=== PATIENT | male | born 1990 | race Caucasian/White ===

== ENCOUNTER 2016-06-30 08:27 | Emergency (ER) | payer OTHER, BC ==
[2016-06-30] MEDS ORDERED: Ondansetron 4 MG/2 ML SDV IVPUSH ONE (08:46)
[2016-06-30] MEDS ORDERED: Sodium Chloride 0.9% 1,000 ML IV ONE (08:46)
--- NOTE | 2016-06-30 08:52 | EDM.PDOC ---
ED HPI GENERAL MEDICAL PROBLEM - General Chief Complaint: Gastrointestinal Problem Stated Complaint: VOMITING Time Seen by Provider: 06/30/16 08:52 Source of Information: Reports: Patient - History of Present Illness INITIAL COMMENTS - FREE TEXT/NARRATIVE: HISTORY AND PHYSICAL: History of present illness: [] Patient presents with several episodes of vomiting since yesterday, he presents with vomiting as a complaint he attributes this to eating a gas station food/3 burrito yeaterday. However on physical exam he does have a quite tender abdomen with focus over the right lower quadrant guarding no fever or chills sweats no chest pain shortness breath headache dizziness or palpitation no bowel or urine symptoms Review of systems: As per history of present illness and below otherwise all systems reviewed and negative. Past medical history: As per history of present illness and as reviewed below otherwise noncontributory. Surgical history: As per history of present illness and as reviewed below otherwise noncontributory. Social history: No reported history of drug or alcohol abuse. Family history: As per history of present illness and as reviewed below otherwise noncontributory. Physical exam: HEENT: Atraumatic, normocephalic, pupils reactive, negative for conjunctival pallor or scleral icterus, mucous membranes moist, throat clear, neck supple, nontender, trachea midline. Lungs: Clear to auscultation, breath sounds equal bilaterally, chest nontender. Heart: S1S2, regular, negative for clicks, rubs, or JVD. Abdomen: Soft, nondistended, diffuse tenderness with focus over the right lower quadrant with guarding noted. Negative for masses or hepatosplenomegaly. Negative for costovertebral tenderness. Pelvis: Stable nontender. Genitourinary: Deferred. Rectal: Deferred. Extremities: Atraumatic, negative for cords or calf pain. Neurovascular unremarkable. Neuro: Awake, alert, oriented. Cranial nerves II through XII unremarkable. Cerebellum unremarkable. Motor and sensory unremarkable throughout. Exam nonfocal. Diagnostics: [] Lab as below Therapeutics: [] Normal saline fluid 1 L bolus Zofran 8 mg IV Patient declines pain medication at this time Impression: Mesenteric adenitis Nausea vomiting improved/resolved Definitive disposition and diagnosis as appropriate pending reevaluation and review of above. - Related Data Allergies Allergy/AdvReac Type Severity Reaction Status Date / Time No Known Allergies Allergy Verified 06/30/16 08:37 Home Meds: Home Meds Antidepressant 06/30/16 [History] Stimulant For Adhd 06/30/16 [History] Past Medical History Psychiatric History: Reports: ADHD, Depression Social & Family History - Family History Family Medical History: Noncontributory - Tobacco Use Smoking Status *Q: Never Smoker - Recreational Drug Use Recreational Drug Use: No ED ROS GENERAL - Review of Systems Review Of Systems: ROS reveals no pertinent complaints other than HPI. ED EXAM, GENERAL - Physical Exam Exam: See Below Course - Vital Signs Last Recorded V/S: Last Vital Signs Temp 36.5 C 06/30/16 08:38 Pulse 65 06/30/16 08:38 Resp 18 06/30/16 08:38 BP 130/73 06/30/16 08:38 Pulse Ox 98 06/30/16 08:38 - Orders/Labs/Meds Orders: Active Orders 24 hr Category Date Time Status Abdomen Pelvis w Cont [CT] Stat Exams 06/30/16 09:01 Taken Labs: Laboratory Tests 06/30/16 06/30/16 06/30/16 Range/Units 08:50 08:55 08:55 WBC 5.39 (4.0-11.0) K/uL RBC 5.06 (4.50-5.90) M/uL Hgb 15.3 (13.0-17.0) g/dL Hct 44.5 (38.0-50.0) % MCV 87.9 (80.0-98.0) fL MCH 30.2 (27.0-32.0) pg MCHC 34.4 (31.0-37.0) g/dL RDW Std Deviation 40.1 (28.0-62.0) fl RDW Coeff of Denia 13 (11.0-15.0) % Plt Count 242 (150-400) K/uL MPV 9.50 (7.40-12.00) fL Neut % (Auto) 46.3 L (48.0-80.0) % Lymph % (Auto) 41.4 H (16.0-40.0) % [place] % (Auto) 10.2 (0.0-15.0) % Eos % (Auto) 1.5 (0.0-7.0) % Baso % (Auto) 0.6 (0.0-1.5) % Neut # (Auto) 2.5 (1.4-5.7) K/uL Lymph # (Auto) 2.2 (0.6-2.4) K/uL [place] # (Auto) 0.6 (0.0-0.8) K/uL Eos # (Auto) 0.1 (0.0-0.7) K/uL Baso # (Auto) 0.0 (0.0-0.1) K/uL Nucleated RBC % 0.0 /100WBC Nucleated RBCs # 0 K/uL Sodium 140 (136-146) mmol/L Potassium 3.7 (3.5-5.1) mmol/L Chloride 107 (98-110) mmol/L Carbon Dioxide 24 (21-31) mmol/L BUN 8 (6.0-23.0) mg/dL Creatinine 0.9 (0.6-1.5) mg/dL Est Cr Clr Drug Dosing 114.21 mL/min Estimated GFR (MDRD) > 60.0 ml/min Glucose 79 (60-110) mg/dL Calcium 9.5 (8.8-10.8) mg/dL Total Bilirubin 1.0 (0.1-1.5) mg/dL AST 17 (5-40) IU/L ALT 10 (8-54) IU/L Alkaline Phosphatase 50 (40-150) Total Protein 7.4 (6.0-8.0) g/dL Albumin 4.9 (3.5-5.0) g/dL Globulin 2.5 (2.0-3.5) g/dL Albumin/Globulin Ratio 2.0 (1.3-2.8) Urine Color YELLOW Urine Appearance CLEAR Urine pH 6.0 (5.0-8.0) Ur Specific [place] 1.010 (1.001-1.035) Urine Protein NEGATIVE (NEGATIVE) mg/dL Urine Glucose (UA) NEGATIVE (NEGATIVE) mg/dL Urine Ketones NEGATIVE (NEGATIVE) mg/dL Urine Occult Blood NEGATIVE (NEGATIVE) Urine Nitrite NEGATIVE (NEGATIVE) Urine Bilirubin NEGATIVE (NEGATIVE) Urine Urobilinogen 0.2 (<2.0) EU/dL Ur Leukocyte Esterase NEGATIVE (NEGATIVE) Urine RBC 0-1 (0-2/HPF) Urine WBC 0-1 (0-5/HPF) Ur Epithelial Cells OCCASIONAL (NONE-FEW) Urine Bacteria RARE (NEGATIVE) Meds: Medications Discontinued Medications Generic Name Dose Route Start Last Admin Trade Name Klaus PRN Reason Stop Dose Admin Sodium Chloride 1,000 mls @ 999 mls/hr 06/30/16 08:46 06/30/16 08:59 Normal Saline IV 06/30/16 09:46 999 mls/hr STAT ONE Administration Iopamidol 90 ml 06/30/16 09:58 06/30/16 09:59 Isovue Multipack-370 (76%) IVPUSH 06/30/16 09:59 90 ml ONETIME STA Administration Ondansetron HCl 8 mg 06/30/16 08:46 06/30/16 08:59 Zofran IVPUSH 06/30/16 08:47 8 mg ONETIME ONE Administration Departure - Departure Time of Disposition: 10:38 Disposition: Home, Self-Care 01 Condition: good Clinical Impression: Mesenteric adenitis Forms: ED Department Discharge Additional Instructions: Bactrim double strength by mouth twice a day #20 no refill Zofran 8 mg ODT every 8 when necessary #30 no refill Fluid hydration techniques as discussed Clear liquids 24 hours The following information is given to patients seen in the emergency department who are being discharged to home. This information is to outline your options for follow-up care. We provide all patients seen in our emergency department with a follow-up referral. The need for follow-up, as well as the timing and circumstances, are variable depending upon the specifics of your emergency department visit. If you don't have a primary care physician on staff, we will provide you with a referral. We always advise you to contact your personal physician following an emergency department visit to inform them of the circumstance of the visit and for follow-up with them and/or the need for any referrals to a consulting specialist. The emergency department will also refer you to a specialist when appropriate. This referral assures that you have the opportunity for follow-up care with a specialist. All of these measure are taken in an effort to provide you with optimal care, which includes your follow-up. Under all circumstances we always encourage you to contact your private physician who remains a resource for coordinating your care. When calling for follow-up care, please make the office aware that this follow-up is from your recent emergency room visit. If for any reason you are refused follow-up, please contact the [facility] emergency department at and asked to speak to the emergency department charge nurse. - My Orders Last 24 Hours: My Active Orders 06/30/16 09:01 Abdomen Pelvis w Cont [CT] Stat - Assessment/Plan Last 24 Hours: My Active Orders 06/30/16 09:01 Abdomen Pelvis w Cont [CT] Stat
[2016-06-30 09:28] LABS: CHLORIDE,CL 107 mmol/L (98-110); SODIUM,NA 140 mmol/L (136-146)
[2016-06-30] MEDS ORDERED: Iopamidol 755 MG/ML 500 ML Multipack Bottle IVPUSH STA (09:58)
[2016-06-30 10:53] VITALS: BP 117/65
--- NOTE | 2016-07-02 09:55 | CT ---
EXAM DATE: 06/30/16 PATIENT'S AGE: 25 Patient: MINERVA MCCLAIN Facility: [place], [place] Site . Site : 1990 Study: CT Abdomen/Pelvis [id number]/[id number] 10:14:45 AM Ordering Physician: Lianet Yang Final Report: INDICATION: Abdominal pain. Nausea and vomiting. Technique: Axial intravenously infused CT cuts have been performed from above the diaphragm to the inferior pubic rami. 90 mL of Isovue-370 has been injected intravenously. All CT scans at this facility utilize dose modulation, iterative reconstruction , and/or weight-based dosing when appropriate to reduce radiation dose to as low as reasonably achievable. Findings: The appendix is not inflamed. The colon and small bowel appear normal. The liver , spleen, pancreas, adrenals and kidneys appear normal. There are a few mildly prominent right lower quadrant mesenteric lymph nodes measuring up to 1 cm in diameter. There is no periaortic or paracaval lymphadenopathy. The urinary bladder, seminal vessels and prostate gland appear normal. There are no enlarged iliac or inguinal lymph nodes. There are no nodules or masses at the lung bases. Impression: Normal-appearing appendix. Mildly prominent right lower quadrant mesenteric lymph nodes likely reactive in nature. Dictated by Daniel Orantes MD @ Jun 30 2016 10:24AM (Electronic Signature) Report Signed by Proxy and Original Signed Document filed in the Medical Record. [facility]
== END 2016-06-30 10:51 | disposition home or self-care (01) ==
LOC: MW.ED 08:27
DX: I88.0 Nonspecific mesenteric lymphadenitis (principal); F90.9 Attention-deficit hyperactivity disorder, unspecified type; F32.9 Major depressive disorder, single episode, unspecified; Z79.899 Other long term (current) drug therapy
CPT/HCPCS: 74177; 80053; 81001; 85025; 96361; 96374; 99284; J2405; J7040; Q9967